=== PATIENT | female | born 1995 | race African-American/Black ===

== ENCOUNTER 2022-05-24 16:49 | Emergency (ER) | payer OTHER ==
[~2022-05-24] VITALS: Ht 170.2 cm; Wt 68.0 kg
[2022-05-24 16:55] VITALS: BP 126/97
--- NOTE | 2022-05-24 17:05 | NUR ---
26 yo/f presents to ed w c/o R upper arm pain 10/10 radiating down arm xapprox 30 mins s/p fall down the stairs landing on R arm. R mid arm appears w deformity. limited rom d/t pain. cap refil <2 sec, able to wiggle fingers, +2 radial pulses. pmh: denies allergies: denies
--- NOTE | 2022-05-24 17:12 | NUR ---
xray at bedside
[2022-05-24] MEDS ORDERED: MORPHINE SULFATE 4 MG/ML SYR IVP ONE (17:25)
[2022-05-24] MEDS ORDERED: HYDR-5080 PO (18:07)
[2022-05-24] MEDS ORDERED: IBUP-2213 PO (18:07)
[2022-05-24] MEDS ORDERED: ACET-8905 PO (18:12)
[2022-05-24] MEDS ORDERED: fentaNYL citrate 0.05 MG/ML VIAL IVP ONE (18:35)
--- NOTE | 2022-05-24 18:45 | NUR ---
ortho md at bedside for r fracture procedure, and splinting.
--- NOTE | 2022-05-24 18:59 | NUR ---
COAPTATION SPLINT APPLIED TO R UPPER ARM BY ORTHO WITH 4 JAMESON WRAPS APPLIED. + CMS. PT PROVIDED WITH SLING.
--- NOTE | 2022-05-24 19:14 | NUR ---
per CAMPBELL alejo pt ok for discharge at this time and no need to wait on xray report.
[2022-05-24 19:15] VITALS: BP 126/77
--- NOTE | 2022-05-24 19:17 | NUR ---
Patient discharged with v/s stable. Written and verbal after care instructions given and explained. Patient alert, oriented and verbalized understanding of instructions. Ambulatory with steady gait. All questions addressed prior to discharge. ID band removed. Patient advised to follow up with PMD. Rx of norco, ibuprofen given. Patient educated on indication of medication including possible reaction and side effects. Opportunity to ask questions provided and answered.
== END 2022-05-24 19:17 | disposition home or self-care (01) ==
LOC: MED 16:49
DX: S42.351A Displaced comminuted fracture of shaft of humerus, right arm, initial encounter for closed fracture (principal); W18.30XA Fall on same level, unspecified, initial encounter; Y93.89 Activity, other specified; Y92.89 Other specified places as the place of occurrence of the external cause; Y99.8 Other external cause status
CPT/HCPCS: 29125; 73060; 73080; 73090; 73110; 96374; 96375; 99284; J2270; J3010; Q0092

== ENCOUNTER 2023-09-08 05:05 | Emergency (ER) | payer OTHER ==
[~2023-09-08] VITALS: Ht 170.2 cm; Wt 69.9 kg
[~2023-09-08 05:05] MED LIST: ACET-8905 PO; IBUP-2213 PO
[2023-09-08 05:23] VITALS: BP 112/82; PULSE 61; RESP 18; TEMP 98.2; O2SAT 98
[2023-09-08] MEDS ORDERED: KETOROLAC 60 MG/2 ML VIAL IM ONE (05:37)
[2023-09-08] MEDS: KETOROLAC 60 MG/2 ML VIAL IM ONE (05:41)
[2023-09-08] MEDS ORDERED: IBUP-2213 PO (05:50)
[2023-09-08 05:55] VITALS: BP 112/82; PULSE 61; RESP 18; TEMP 98.2; O2SAT 98
== END 2023-09-08 05:55 | disposition home or self-care (01) ==
LOC: MED 05:05
DX: S63.602A Unspecified sprain of left thumb, initial encounter (principal); Z79.899 Other long term (current) drug therapy; X58.XXXA Exposure to other specified factors, initial encounter; Y92.89 Other specified places as the place of occurrence of the external cause; Y93.89 Activity, other specified; Y99.8 Other external cause status
CPT/HCPCS: 81025; 96372; 99283; J1885

== ENCOUNTER 2023-09-21 23:50 | Emergency (ER) | payer OTHER ==
[~2023-09-21] VITALS: Ht 172.7 cm; Wt 68.0 kg
[2023-09-21 23:56] VITALS: BP 111/64; PULSE 66; RESP 16; TEMP 96.9; O2SAT 98
== END 2023-09-22 03:58 | disposition home or self-care (01) ==
LOC: MED 23:50
DX: S46.811A Strain of other muscles, fascia and tendons at shoulder and upper arm level, right arm, initial encounter (principal); Z79.899 Other long term (current) drug therapy; V89.2XXA Person injured in unspecified motor-vehicle accident, traffic, initial encounter; Y93.89 Activity, other specified; Y92.410 Unspecified street and highway as the place of occurrence of the external cause; Y99.8 Other external cause status
CPT/HCPCS: 73080; 99283; Q0092